=== PATIENT | female | born 1990 | race Caucasian/White ===

== ENCOUNTER 2021-08-13 09:09 | Emergency (ER) | payer MEDICAID ==
[~2021-08-13] VITALS: Ht 165.1 cm; Wt 108.9 kg
--- NOTE | 2021-08-13 09:10 | NUR ---
ER Dr. Waters at bedside examining patient.
--- NOTE | 2021-08-13 09:10 | NUR ---
Pt bib [employer] for medical clearance/OK to book. No complaints at this time, v/s stable, no acute distress noted.
--- NOTE | 2021-08-13 09:10 | NUR ---
Pt triaged and placed in hallway.
[2021-08-13 09:15] VITALS: BP_SYST 125
[2021-08-13 09:19] VITALS: BP_SYST 125
--- NOTE | 2021-08-13 09:20 | NUR ---
Patient given written and verbal discharge instructions and verbalizes understanding. ER MD discussed with patient the results and treatment provided. Patient in stable condition. ID arm band removed. No prescriptions given. Patient educated on pain management and to follow up with PMD. Pain Scale 0. Opportunity for questions provided and answered. Medication side effect fact sheet provided.
== END 2021-08-13 09:19 ==
LOC: SED 09:09
DX: Z02.89 Encounter for other administrative examinations (principal); R56.9 Unspecified convulsions; Z88.8 Allergy status to other drugs, medicaments and biological substances
CPT/HCPCS: 99283